=== PATIENT | female | born 1955 | race Caucasian/White ===

== ENCOUNTER 2020-09-13 08:20 | Outpatient (CLI) | payer BC | END 2020-09-13 08:21 | disposition home or self-care (01) | LOC: CSHMAMMO 08:20 | PROVIDERS: ATTEND Family Medicine | DX: Z78.0 Asymptomatic menopausal state (principal); M85.80 Other specified disorders of bone density and structure, unspecified site | CPT/HCPCS: 77080 ==

== ENCOUNTER 2021-04-11 08:02 | Outpatient (CLI) | payer BC | END 2021-04-11 08:03 | disposition home or self-care (01) | LOC: CSHMAMMO 08:02 | PROVIDERS: ATTEND Family Medicine | DX: Z12.31 Encounter for screening mammogram for malignant neoplasm of breast (principal); Z80.3 Family history of malignant neoplasm of breast; Z98.890 Other specified postprocedural states | CPT/HCPCS: 77063; 77067 ==

== ENCOUNTER 2022-04-28 06:45 | Emergency (ER) | payer MEDICARE, BC ==
[2022-04-28] MEDS ORDERED: Ketorolac Tromethamine 30 MG/ML VIAL ONE (07:44)
== END 2022-04-28 07:52 | disposition home or self-care (01) ==
LOC: CSHERS 06:45
DX: M62.838 Other muscle spasm (principal)
CPT/HCPCS: 93005; 96372; J1885

== ENCOUNTER 2024-05-29 08:18 | Outpatient (CLI) | payer BC, MEDICARE | END 2024-05-29 08:19 | disposition home or self-care (01) | LOC: CSHMAMMO 08:18 | PROVIDERS: ATTEND Family Medicine | DX: Z12.31 Encounter for screening mammogram for malignant neoplasm of breast (principal); Z80.3 Family history of malignant neoplasm of breast; Z98.890 Other specified postprocedural states | CPT/HCPCS: 77063; 77067 ==